=== PATIENT | male | born 1950 | race Caucasian/White ===

== ENCOUNTER → 2016-11-03 | Outpatient (CLI) | payer OTHER ==
--- NOTE | 2016-11-03 09:27 | US ---
EXAMINATION TYPE: US abdomen limited DATE OF EXAM: 11/03/2016 COMPARISON: NONE CLINICAL HISTORY: 66-year-old male R94.5 abnormal liver function test. Patient is taking multiple med ications for HTN, diabetes, gout, and Ibuprofen PRN. TECHNIQUE: Multiple sonographic images of the right upper quadrant are obtained. FINDINGS: Liver Length: 13.7 cm Gallbladder Wall: 0.2 cm CBD: 0.5 cm Right Kidney: 11.0x 6.7 x 5.5 cm Pancreas: Obscured by bowel gas Liver: Markedly echogenic and attenuating liver. The secondary limits assessment for focal lesion. H owever, underlying hepatic cysts with posterior through transmission are present measuring up to 3.5 cm and the left lobe and 2.3 cm in the superior right lobe. The second cyst has internal echoes but s till shows posterior through transmission. Gallbladder: There are couple mobile calculi measuring up to 1.9 cm. No abnormal distention, wall th ickening, or pericholecystic fluid. Evidence for sonographic Hernandez's sign: No CBD: wnl Right Kidney: No hydronephrosis. There is a 1.1 cm lower pole renal calculus. IMPRESSION: 1. Marked hepatic steatosis. Correlate with LFTs, lipid profile, and patient risk factors. 2. Scattered hepatic cysts measuring up to 3.5 cm. One lesion in the superior right lobe measures 2.3 cm and has internal echoes. A complicated cyst or other lesion such as hemangioma on a background of fatty infiltration are differential considerations. Recommend 6 month follow-up liver ultrasound to ensure stability. 3. Cholelithiasis measuring up to 1.9 cm. 4. 1.1 cm nonobstructive right lower pole renal calculus.
--- NOTE | 2016-11-03 09:29 | US ---
EXAMINATION TYPE: US carotid duplex BILAT DATE OF EXAM: 11/03/2016 COMPARISON: NONE CLINICAL HISTORY: 66-year-old male G45.9 TIA. Patient's stated patient had lack of eye/hand coor dination that lasted 1.5 days and first noted when using TV remote control and pouring milk. Patient takes medication for HTN, diabetes, gout, and for pain PRN TECHNIQUE: Carotid duplex ultrasound examination. Indirect Doppler criteria was utilized. FINDINGS: Mild atherosclerotic change at the right bifurcation and mild to moderate on the left with prominent soft plaque. EXAM MEASUREMENTS: RIGHT: Peak Systolic Velocity (PSV) cm/sec ----- Right CCA: 70.2 ----- Right ICA: 72.8 ----- Right ECA: 66.9 ICA/CCA ratio: 1.0 RIGHT: End Diastole cm/sec ----- Right CCA: 22.2 ----- Right ICA: 19.7 ----- Right ECA: 17.1 LEFT: Peak Systolic Velocity (PSV) cm/sec ----- Left CCA: 70.2 ----- Left ICA: 70.2 ----- Left ECA: 72.8 ICA/CCA ratio: 1.0 LEFT: End Diastole cm/sec ----- Left CCA: 24.8 ----- Left ICA: 24.8 ----- Left ECA: 13.4 VERTEBRALS (direction of flow): Right Vertebral: Antegrade Left Vertebral: Antegrade MASTER RIGGER NOTES: Mild mixed intimal wall changes are noted at right carotid bifurcation. Moderate s oft wall plaque is noted at Left ICA Bulb, but PSV is wnl bilaterally. IMPRESSION: No hemodynamically significant stenosis appreciated in either internal carotid artery. Criteria for Assigning % of Stenosis / Diameter reduction (Estimation based on the indirect measurements of the internal carotid artery velocities (ICA PSV). 1. Normal (no stenosis)=ICA PSV < 125 cm/s: ratio < 2.0: ICA EDV<40 cm/s. 2. Less than 50% stenosis=ICA PSV < 125 cm/s: ratio < 2.0: ICA EDV<40 cm/s. 3. 50 to 69% stenosis=ICA PSV of 125 to 230 cm/s: ration 2.0 ? 4.0: ICA EDV 40-100 cm/s. 4. Greater than 70% stenosis to near occlusion= ICA PSV > 230 cm/s: ratio > 4.0: ICA EDV > 100 cm/s. 5. Near occlusion= ICA PSV velocities may be low or undetectable: variable ratio and ICA EDV. 6. Total occlusion=unable to detect flow.
--- NOTE | 2016-11-03 10:03 | CT ---
EXAMINATION TYPE: CT brain wo con DATE OF EXAM: 11/03/2016 COMPARISON: 09/10/2011 HISTORY: TIA CT DLP: 1054.2 mGycm Automated exposure control for dose reduction was used. FINDINGS: There is dural calcification. Low density within the right basal ganglia suggestive of remote lacunar infarction. Findings stable from previous exam. Mild generalized degenerative change. There is faint periventricular low attenuation which is nonspec ific. More focal area of low-attenuation the posterior left parietal white matter suggestive of previ ous ischemia. No midline shift or mass effect. IMPRESSION: 1. THERE IS ATTENUATION ALONG THE LATERAL MARGIN OF THE CAVERNOUS SINUS WHICH APPEARS PROMINENT BUT S TABLE FROM 2011. MRI FOLLOW-UP SUGGESTED. 2. NONSPECIFIC WHITE MATTER CHANGES MOST TYPICAL REMOTE MICROVASCULAR ISCHEMIA. IF THERE IS CLINICAL CONCERN FOR ACUTE ISCHEMIA THAN MRI IS RECOMMENDED. 3. REMOTE LACUNAR INFARCTION RIGHT BASAL GANGLIA.
== END | disposition home or self-care (01) ==
LOC: RADUSMAIN 07:48
PROVIDERS: ATTEND Family Medicine
DX: K76.0 Fatty (change of) liver, not elsewhere classified (principal); K76.89 Other specified diseases of liver; K80.20 Calculus of gallbladder without cholecystitis without obstruction
CPT/HCPCS: 70450; 76705; 93880

== ENCOUNTER → 2016-12-23 | Outpatient (CLI) | payer OTHER ==
--- NOTE | 2016-12-23 10:28 | ECHOF ---
Referral Reason:G45.9 transient cerebral ischemia MEASUREMENTS -------- HEIGHT: 180.3 cm WEIGHT: 88.5 kg BP: 152/89 RVIDd: 2.8 cm (< 3.3) IVSd: 1.1 cm (0.6 - 1.1) LVIDd: 4.0 cm (3.9 - 5.3) LVPWd: 1.3 cm (0.6 - 1.1) EDV(Teich): 71 ml IVSs: 1.5 cm LVIDs: 2.6 cm LVPWs: 1.5 cm %IVS Thck: 32 % ESV(Teich): 25 ml EF(Teich): 64 % %FS: 35 % SV(Teich): 45 ml LA Diam: 2.6 cm (2.7 - 3.8) LALs A4C: 3.7 cm LAAs A4C: 11.0 cm LAESV A-L A4C: 28 ml LAESV MOD A4C: 24 ml LALs A2C: 5.4 cm LAAs A2C: 11.6 cm LAESV A-L A2C: 21 ml LAESV MOD A2C: 20 ml LAESV(A-L): 29 ml LAESV Index (A-L): 13.98 ml/m Ao Diam: 3.2 cm (2.0 - 3.7) AV Cusp: 2.3 cm (1.5 - 2.6) MV EXCURSION: 11.388 mm (> 18.000) MV EF SLOPE: 35 mm/s (70 - 150) EPSS: 0.5 cm MV E Eros: 0.49 m/s MV DecT: 277 ms MV Dec [place]: 1.8 m/s MV A Eros: 0.73 m/s MV E/A Ratio: 0.67 MV PHT: 80 ms E/E': 4.90 E': 0.10 m/s AV Vmax: 1.01 m/s AV maxP.06 mmHg TR Vmax: 2.50 m/s TR maxP.01 mmHg RAP: 5.00 mmHg RVSP: 30.01 mmHg FINDINGS -------- Sinus rhythm. This was a technically adequate study. The left ventricular size is normal. There is mild concentric left ventricular hypertrophy. Overall left ventricular systolic function is normal with, an EF between 55 - 60 %. The right ventricle is normal in size. Normal LA size by volume 22+/-6 ml/m2. The right atrium is normal in size. Aortic valve is trileaflet and is mildly thickened. Mild mitral annular calcification present. Mild tricuspid regurgitation present. Right ventricular systolic pressure is normal at < 35 mmHg. There is no pulmonic regurgitation present. The aortic root size is normal. Normal inferior vena cava with normal inspiratory collapse consistent with estimated right atrial pressure of 5 mmHg. There is no pericardial effusion. CONCLUSIONS -------- 1. Sinus rhythm. 2. Mild mitral annular calcification present. 3. Mild tricuspid regurgitation present. 4. Right ventricular systolic pressure is normal at < 35 mmHg. 5. There is no pulmonic regurgitation present. 6. The aortic root size is normal. 7. Normal inferior vena cava with normal inspiratory collapse consistent with estimated right atrial pressure of 5 mmHg. 8. There is no pericardial effusion. 9. This was a technically adequate study. 10. The left ventricular size is normal. 11. There is mild concentric left ventricular hypertrophy. 12. Overall left ventricular systolic function is normal with, an EF between 55 - 60 %. 13. The right ventricle is normal in size. 14. Normal LA size by volume 22+/-6 ml/m2. 15. The right atrium is normal in size. 16. Aortic valve is trileaflet and is mildly thickened. TECHNICIAN TERMINAL AND REPEATER: Daniella Keith RDCS
--- NOTE | 2016-12-23 10:56 | MR ---
EXAMINATION TYPE: MR brain wo con DATE OF EXAM: 12/23/2016 COMPARISON: NONE HISTORY: TIA CONTRAST: Performed utilizing 0 mL intravenous Gadavist gadolinium contrast. TECHNIQUE: Multiplanar, multiecho imaging on a 3.0 Jessica magnet is performed through the brain. Stud y is performed within 24 hours of arrival to the hospital. The craniovertebral junction is normal. The pituitary is normal. Diffusion-weighted imaging is performed. No abnormal hyperintensity is present to suggest an acute i ntracranial infarct or acute ischemic change. There are scattered punctate areas of hyperintensity on T2 and Inversion Recovery weighted sequences which are non-specific but can be related to microvascular ischemic changes. The largest areas in the subcortical left occipital lobe. Findings are present bilaterally. Ventricles and sulci are appropriate for the patient age. IMPRESSIONS: 1. Chronic appearing white matter ischemic changes. The largest areas within the left occipital lobe. Findings are present bilaterally. 2. No acute intracranial changes identified.
== END | disposition home or self-care (01) ==
LOC: RADECHMAIN 07:57
PROVIDERS: ATTEND Psychiatry & Neurology Neurology
DX: I08.3 Combined rheumatic disorders of mitral, aortic and tricuspid valves (principal); R90.82 White matter disease, unspecified; I67.82 Cerebral ischemia
CPT/HCPCS: 70551; 93306

== ENCOUNTER → 2017-09-22 | Outpatient (CLI) | payer OTHER ==
--- NOTE | 2017-09-22 08:46 | US ---
EXAMINATION TYPE: US abdomen limited DATE OF EXAM: 09/22/2017 COMPARISON: US CLINICAL HISTORY: Abnormal Results liver functions R94.5. Elevated LFT's EXAM MEASUREMENTS: Liver Length: 14.3 cm Gallbladder Wall: 0.3 cm CBD: 0.4 cm Right Kidney: 11.6 x 5.2 x 5.6 cm Pancreas: wnl, tail obscured by overlying bowel gas Liver: Multicystic as seen on previous, largest cyst left lobe= 3.1 x 2.7 x 3.6 cm and largest right lobe= 2.5 x 1.7 x 3.0 cm Gallbladder: gallstone within neck, appeared non-mobile, however previous exam shows mobility, wall thickness upper limits of normal Evidence for sonographic Hernandez's sign: No CBD: wnl Right Kidney: No evidence of hydro, lower pole calculus= 3mm IMPRESSION: 1. Redemonstration of marked hepatic steatosis. This appears in similar degree to the prior. 2. Multiple choleliths catheter within the low bladder neck without common bile duct dilatation. 3. Numerous benign-appearing scattered hepatic cysts. 4. Small nonobstructing 3 mm right lower pole renal calculus.
== END | disposition home or self-care (01) ==
LOC: RADUSWWP 07:25
DX: K76.0 Fatty (change of) liver, not elsewhere classified (principal); K76.89 Other specified diseases of liver; N20.0 Calculus of kidney
CPT/HCPCS: 76705

== ENCOUNTER → 2017-09-29 | Outpatient (CLI) | payer OTHER ==
--- NOTE | 2017-09-29 20:31 | MR ---
EXAMINATION TYPE: MR lumbar spine wo con DATE OF EXAM: 09/29/2017 COMPARISON: NONE HISTORY: Intervertebral disc disorders w/ radiculopathy CONTRAST: 0 mL intravenous Gadavist. TECHNIQUE: Multiplanar, multisequence images of the lumbar spine were acquired. FINDINGS: Cord terminates at the L1 level. There is straightening of the lumbar spine in the sagitta l plane. L5-S1: There is narrowing of disc height. Broad-based disc bulge has anterior thecal sac contact. No spinal canal stenosis or nerve root compression is present. Right foramen has moderate narrowing. Lef t foramen has severe foraminal stenosis due to facet hypertrophy. Facet hypertrophy is present bilate rally. L4-L5: Broad-based disc bulge is present with mild anterior thecal sac compression. No AP spinal july l stenosis is present. There is moderate left foraminal narrowing with probable nerve root impingemen t within the foramen. There is severe right foraminal stenosis due to endplate spurring. Correlate wi th right L5 radicular symptoms. L3-L4: Mild endplate spurring is present. There is loss of disc height. Minimal residual disc bulge i s present with anterior thecal sac contact. There is moderate right and left foraminal narrowing. Ner ve root impingement within the foramen may be present. L2-L3: There is loss of disc height to this level. Mild bilateral foraminal narrowing is present. No spinal canal stenosis is present. L1-L2: No significant disc bulge or disc herniation. No spinal canal stenosis. No foraminal stenosi s. Mild facet hypertrophy is present.. T12-L1: No significant disc bulge or disc herniation. No spinal canal stenosis. No foraminal stenos is. IMPRESSION: 1. Multilevel degenerative disc changes L2-3 through L5-S1. 2. Moderate to severe foraminal stenosis L2-3 L3-4 bilaterally and L4-5 on the left L5-S1 on the righ t. Severe foraminal narrowing L4-5 on the right and L5-S1 on the left.
== END | disposition home or self-care (01) ==
LOC: RADMRIMAIN 17:56
PROVIDERS: ATTEND Nurse Practitioner Acute Care
DX: M47.27 Other spondylosis with radiculopathy, lumbosacral region (principal); M99.73 Connective tissue and disc stenosis of intervertebral foramina of lumbar region
CPT/HCPCS: 72148

== ENCOUNTER → 2017-11-04 | Outpatient (CLI) | payer OTHER ==
[2017-11-04 15:09] LABS: Basophils % (A) 0 %; Eosinophils # (A) 0.2 k/uL (0-0.7); Eosinophils % (A) 2 %; HCT 41.9 % (39.0-53.0); HGB 14.4 gm/dL (13.0-17.5); Lymphocytes # (A) 2.2 k/uL (1.0-4.8); Lymphocytes % (A) 29 %; MCH 31.5 pg (25.0-35.0); MCHC 34.4 g/dL (31.0-37.0); MCV 91.8 fL (80.0-100.0); Mean Platelet Volume 7.7; Monocytes # (A) 0.3 k/uL (0-1.0); Monocytes % (A) 4 %; Neutrophils # (A) 4.7 k/uL (1.3-7.7); Neutrophils % (A) 63 %; Platelet Count 176 k/uL (150-450); RBC 4.57 m/uL (4.30-5.90); RDW 12.5 % (11.5-15.5); WBC 7.5 k/uL (3.8-10.6)
[2017-11-04 15:18] LABS: ALT 107 U/L (21-72); AST 83 U/L (17-59); Albumin 4.7 g/dL (3.5-5.0); Alkaline Phosphatase 59 U/L (38-126); Anion Gap 14 mmol/L; Blood Urea Nitrogen 20 mg/dL (9-20); Calcium 9.9 mg/dL (8.4-10.2); Carbon Dioxide 27 mmol/L (22-30); Chloride 104 mmol/L (98-107); Glucose 115 mg/dL (74-99); Potassium 4.6 mmol/L (3.5-5.1); Sodium 145 mmol/L (137-145); Total Bilirubin 1.9 mg/dL (0.2-1.3); Total Protein 7.3 g/dL (6.3-8.2)
[2017-11-04 19:02] LABS: Iron Saturation 31.94 (15.00-50.00); Protein, Total 7.4 g/dL (6.2-8.2)
[2017-11-04 20:01] LABS: Hepatitis C IgG Antibody Non-Reactive (Non-Reactive)
[2017-11-05 12:10] LABS: Ceruloplasmin 16.2 mg/dL (20.0-60.0)
[2017-11-08 11:00] LABS: Albumin 4.77 g/dL (3.80-4.90); Gamma Globulin 0.93 g/dL (0.70-1.50)
== END | disposition home or self-care (01) ==
LOC: LABWHC1 14:30
PROVIDERS: ATTEND Internal Medicine Gastroenterology
DX: R79.89 Other specified abnormal findings of blood chemistry (principal)
CPT/HCPCS: 36415; 80053; 82103; 82390; 82728; 83516; 83540; 83550; 84165; 85025; 86038; 86803; 87340

== ENCOUNTER → 2017-11-25 | Outpatient (CLI) | payer OTHER ==
[2017-11-25 10:35] LABS: ALT 84 U/L (21-72); AST 57 U/L (17-59); Albumin 4.7 g/dL (3.5-5.0); Alkaline Phosphatase 64 U/L (38-126); Anion Gap 10 mmol/L; Blood Urea Nitrogen 15 mg/dL (9-20); Calcium 9.7 mg/dL (8.4-10.2); Carbon Dioxide 25 mmol/L (22-30); Chloride 107 mmol/L (98-107); Glucose 155 mg/dL (74-99); Potassium 4.4 mmol/L (3.5-5.1); Sodium 142 mmol/L (137-145); Total Bilirubin 1.5 mg/dL (0.2-1.3); Total Protein 7.3 g/dL (6.3-8.2)
== END | disposition home or self-care (01) ==
LOC: LABWHC1 09:24
PROVIDERS: ATTEND Internal Medicine Gastroenterology
DX: R94.5 Abnormal results of liver function studies (principal)
CPT/HCPCS: 36415; 80053